=== PATIENT | male | born 1965 | race African-American/Black ===

== ENCOUNTER 2018-01-08 07:48 | Inpatient (IN) | payer MEDICARE, OTHER ==
[~2018-01-08] VITALS: Ht 180.3 cm; Wt 91.2 kg
[~2018-01-08 07:48] MED LIST: AMLO-512 PO; ASPI81 PO; CARV12 PO; FURO40 PO; LISI-662 PO; SPIR25 PO
[2018-01-08 08:34] LABS: GLUCOSE,POINT OF CARE 94 MG/DL (70-110)
[2018-01-08] MEDS ORDERED: METF-444 PO (08:46)
[2018-01-08] MEDS ORDERED: IPRATROPIUM BROMIDE 0.5 MG/2.5 ML NEB SOLUTION NEB ONE (09:15)
[2018-01-08] MEDS ORDERED: ALBUTEROL SULFATE 5 MG/ML 20 ML NEB SOLN [BULK] NEB ONE (09:15)
[2018-01-08] MEDS ORDERED: MethylPREDNISolone SOD SUCC 125 MG/2 ML VIAL IVP ONE (09:15)
[2018-01-08 09:24] LABS: BASOPHILS % (AUTO) 0.6 % (0.0-2.0); EOSINOPHILS % (AUTO) 1.6 % (1.0-6.0); HEMATOCRIT 41.9 % (41-53); HEMOGLOBIN 13.6 g/dL (13.5-17.5); LYMPHOCYTES # (AUTO) 0.6 K/uL (1.0-4.8); LYMPHOCYTES % (AUTO) 6.6 % (22.0-44.0); MEAN CORPUSCULAR HEMOGLOBIN 27.6 pg (26.0-34.0); MEAN CORPUSCULAR HGB CONC 32.5 G/dL (31.0-37.0); MEAN CORPUSCULAR VOLUME 85 fL (80-100); MONOCYTES # (AUTO) 0.6 K/uL (0.1-1.0); MONOCYTES % (AUTO) 6.9 % (2.0-9.0); NEUTROPHILS # (AUTO) 7.2 K/uL (1.8-7.7); NEUTROPHILS % (AUTO) 84.3 % (40.0-70.0); PLATELET COUNT (AUTO) 232 K/uL (150-450); RED BLOOD CELL COUNT(AUTO) 4.93 MIL/uL (4.50-5.90); RED CELL DISTRIBUTION WIDTH 17.8 % (11.5-14.5)
[2018-01-08 09:47] LABS: ANION GAP 8 mmol/L (8-16); CALCIUM, TOTAL 8.4 mg/dL (8.8-10.5); CARBON DIOXIDE 28 mmol/L (22-29); CHLORIDE 105 mmol/L (98-107); CREATININE 0.89 mg/dL (0.60-1.30); GLOMERULAR FILTR. RATE CALC > 60 mL/min (>60); GLUCOSE,RANDOM 102 mg/dL (70-110); POTASSIUM 3.8 mmol/L (3.5-5.1); SODIUM SERUM 141 mmol/L (136-145); UREA NITROGEN, BLOOD 17 mg/dL (7-18)
[2018-01-08 09:53] LABS: APPEARANCE,URINE CLEAR (CLEAR); BILIRUBIN,URINE NEGATIVE (NEGATIVE); GLUCOSE, URINE (UA) NEGATIVE (NEGATIVE); KETONES,URINE NEGATIVE (NEGATIVE); LEUKOCYTE ESTERASE ,URINE NEGATIVE (NEGATIVE); NITRATE,URINE NEGATIVE (NEGATIVE); OCCULT BLOOD,URINE NEGATIVE (NEGATIVE); PH,URINE 6.5 (5.0-8.0); PROTEIN,URINE SEE CONFIRM (NEGATIVE)
[2018-01-08 09:59] LABS: BACTERIA,URINE None Seen /HPF (None Seen); RBC,URINE None Seen /HPF (0-2); SULFOSALICYLIC ACID,URINE 4+ (Negative); WBC,URINE None Seen /HPF (0-5)
[2018-01-08 10:12] LABS: ALANINE AMINOTRANSFERASE 46 U/L (12-78); ALBUMIN 2.4 g/dL (3.4-5.0); ALKALINE PHOSPHATASE 120 U/L (46-116); ASPARTATE AMINOTRANSFERASE 32 U/L (15-37); BILIRUBIN,TOTAL 0.5 mg/dL (0.1-1.0); CREATINE KINASE, TOTAL ONLY 286 U/L (39-308); TOTAL PROTEIN, SERUM 6.9 g/dL (6.4-8.2)
[2018-01-08 10:26] LABS: B-TYPE NATRIURETIC PEPTIDE 2290 pg/mL (0-100)
[2018-01-08] MEDS ORDERED: FUROSEMIDE 40 MG/4 ML VIAL IVP ONE (10:45)
[2018-01-08] MEDS ORDERED: ZOLPIDEM TARTRATE 5 MG TABLET PO PRN (12:30)
[2018-01-08] MEDS ORDERED: GLUCAGON,HUMAN RECOMBINANT 1 MG VIAL IM PRN (12:30)
[2018-01-08] MEDS ORDERED: 0.9% SODIUM CHLORIDE 10 ML SYRINGE IVP PRN ×2 (12:30→12:45)
[2018-01-08] MEDS ORDERED: ONDANSETRON HCL 4 MG/2 ML VIAL IVP PRN ×2 (12:30→12:45)
[2018-01-08] MEDS ORDERED: ACETAMINOPHEN 325 MG TABLET PO PRN (12:45)
[2018-01-08] MEDS ORDERED: DEXTROSE 50%-WATER 25 GM/50 ML SYRINGE IVP PRN (12:45)
[2018-01-08] MEDS ORDERED: ASPIRIN 81 MG CHEWABLE TABLET PO ONE (12:45)
[2018-01-08 12:53] VITALS: BP 158/102
[2018-01-08] MEDS: DOCUSATE SODIUM 100 MG CAPSULE PO SCH ×2 (13:24→21:00)
[2018-01-08] MEDS: ENOXAPARIN SODIUM 40 MG/0.4 ML PF SYRINGE SQ SCH (13:24)
[2018-01-08] MEDS: LISINOPRIL 20 MG TABLET PO SCH (13:24)
[2018-01-08 16:29] VITALS: BP 152/90
[2018-01-08] MEDS: MetFORMIN HCL 500 MG TABLET PO SCH (17:50)
[2018-01-08] MEDS: INSULIN LISPRO 100 UNITS/ML SQ PRN ×2 (17:52→21:16)
[2018-01-08 19:31] VITALS: BP 145/89
[2018-01-08] MEDS: FUROSEMIDE 40 MG/4 ML VIAL IVP SCH (21:12)
[2018-01-08] MEDS: BENZONATATE 100 MG CAPSULE PO SCH (21:13)
[2018-01-08 21:23] LABS: GLUCOMETER DEV NAME(LOC) 5N 1P; GLUCOSE,POINT OF CARE 274 MG/DL (70-110)
[2018-01-08 23:06] LABS: AMPHET/METH SCREEN,URINE NEGATIVE (NEGATIVE); BARBITURATE SCREEN, URINE NEGATIVE (NEGATIVE); BENZODIAZEPINES SCREEN,URINE NEGATIVE (NEGATIVE); CANNABINOID SCREEN,URINE NEGATIVE (NEGATIVE); COCAINE SCREEN,URINE NEGATIVE (NEGATIVE); METHADONE SCREEN, URINE NEGATIVE (NEGATIVE); OPIATE SCREEN,URINE NEGATIVE (NEGATIVE); PHENCYCLIDINE SCREEN,URINE NEGATIVE (NEGATIVE)
[2018-01-08 23:36] VITALS: BP_SYST 139; BP_SYST 142; BP_DIAS 70; BP_DIAS 90
[2018-01-09 04:22] VITALS: BP 129/82
[2018-01-09] MEDS: INSULIN LISPRO 100 UNITS/ML SQ PRN ×3 (06:03→20:18)
[2018-01-09 06:43] LABS: BASOPHILS % (AUTO) 0.2 % (0.0-2.0); EOSINOPHILS % (AUTO) 0.1 % (1.0-6.0); HEMATOCRIT 40.9 % (41-53); HEMOGLOBIN 13.3 g/dL (13.5-17.5); LYMPHOCYTES # (AUTO) 0.4 K/uL (1.0-4.8); LYMPHOCYTES % (AUTO) 3.6 % (22.0-44.0); MEAN CORPUSCULAR HEMOGLOBIN 27.6 pg (26.0-34.0); MEAN CORPUSCULAR HGB CONC 32.6 G/dL (31.0-37.0); MEAN CORPUSCULAR VOLUME 85 fL (80-100); MONOCYTES # (AUTO) 0.8 K/uL (0.1-1.0); NEUTROPHILS # (AUTO) 10.3 K/uL (1.8-7.7); PLATELET COUNT (AUTO) 244 K/uL (150-450); RED BLOOD CELL COUNT(AUTO) 4.84 MIL/uL (4.50-5.90); RED CELL DISTRIBUTION WIDTH 17.1 % (11.5-14.5)
[2018-01-09 06:51] LABS: ANION GAP 10 mmol/L (8-16); CALCIUM, TOTAL 8.6 mg/dL (8.8-10.5); CARBON DIOXIDE 26 mmol/L (22-29); CHLORIDE 101 mmol/L (98-107); GLOMERULAR FILTR. RATE CALC > 60 mL/min (>60); GLUCOSE,RANDOM 146 mg/dL (70-110); SODIUM SERUM 137 mmol/L (136-145); UREA NITROGEN, BLOOD 26 mg/dL (7-18)
[2018-01-09 06:55] LABS: NEUTROPHILS % (AUTO) 89.1 % (40.0-70.0)
[2018-01-09 07:36] VITALS: BP 137/102
[2018-01-09 07:42] LABS: B-TYPE NATRIURETIC PEPTIDE 1870 pg/mL (0-100)
[2018-01-09] MEDS: MetFORMIN HCL 500 MG TABLET PO SCH ×2 (08:30→16:51)
[2018-01-09] MEDS: ENOXAPARIN SODIUM 40 MG/0.4 ML PF SYRINGE SQ SCH (08:30)
[2018-01-09] MEDS: DOCUSATE SODIUM 100 MG CAPSULE PO SCH ×2 (08:31→20:15)
[2018-01-09] MEDS: LISINOPRIL 20 MG TABLET PO SCH (08:31)
[2018-01-09] MEDS: FUROSEMIDE 40 MG/4 ML VIAL IVP SCH ×2 (08:31→20:16)
[2018-01-09] MEDS: BENZONATATE 100 MG CAPSULE PO SCH ×3 (08:31→20:15)
[2018-01-09] MEDS: ASPIRIN 81 MG CHEWABLE TABLET PO SCH (08:31)
[2018-01-09 11:28] VITALS: BP 140/98
[2018-01-09] MEDS ORDERED: SODIUM CHLORIDE 0.9% 100 ML ONE (13:31)
[2018-01-09 13:38] LABS: GLUCOMETER DEV NAME(LOC) 5S 1N; GLUCOSE,POINT OF CARE 116 MG/DL (70-110)
[2018-01-09] MEDS: AZITHROMYCIN 500 MG/NS 250 ML IV SCH (13:39)
[2018-01-09] MEDS: CefTRIAXone SODIUM 1 GM in DEXTROSE 5%-WATER 10 ML IV SCH (13:39)
[2018-01-09 16:28] VITALS: BP 126/86
[2018-01-09 16:44] LABS: GLUCOMETER DEV NAME(LOC) 5S 2R; GLUCOSE,POINT OF CARE 162 MG/DL (70-110)
[2018-01-09 16:44] LABS: GLUCOMETER DEV NAME(LOC) 5S 2R; GLUCOSE,POINT OF CARE 326 MG/DL (70-110)
[2018-01-09 19:29] VITALS: BP 139/98
[2018-01-09 23:34] VITALS: BP 126/86
[2018-01-10 01:11] LABS: GLUCOMETER DEV NAME(LOC) 5S 2R; GLUCOSE,POINT OF CARE 125 MG/DL (70-110)
[2018-01-10 04:08] VITALS: BP 116/62
[2018-01-10] MEDS: INSULIN LISPRO 100 UNITS/ML SQ PRN (05:53)
[2018-01-10 07:41] VITALS: BP 121/87
[2018-01-10] MEDS: FUROSEMIDE 40 MG/4 ML VIAL IVP SCH ×2 (08:19→20:12)
[2018-01-10] MEDS: MetFORMIN HCL 500 MG TABLET PO SCH ×2 (08:19→17:15)
[2018-01-10] MEDS: BENZONATATE 100 MG CAPSULE PO SCH ×3 (08:19→20:12)
[2018-01-10] MEDS: ASPIRIN 81 MG CHEWABLE TABLET PO SCH (08:19)
[2018-01-10] MEDS: AZITHROMYCIN 500 MG/NS 250 ML IV SCH (08:19)
[2018-01-10] MEDS: ENOXAPARIN SODIUM 40 MG/0.4 ML PF SYRINGE SQ SCH (08:20)
[2018-01-10] MEDS: DOCUSATE SODIUM 100 MG CAPSULE PO SCH ×2 (08:20→21:00)
[2018-01-10] MEDS: LISINOPRIL 20 MG TABLET PO SCH (09:31)
[2018-01-10 11:21] VITALS: BP_SYST 121; BP_SYST 138; BP_DIAS 116; BP_DIAS 87
[2018-01-10] MEDS: CefTRIAXone SODIUM 1 GM in DEXTROSE 5%-WATER 10 ML IV SCH (12:27)
[2018-01-10 15:35] VITALS: BP 120/92
[2018-01-10 17:15] LABS: GLUCOMETER DEV NAME(LOC) 5N 2S; GLUCOSE,POINT OF CARE 105 MG/DL (70-110)
[2018-01-10 17:15] LABS: GLUCOMETER DEV NAME(LOC) 5S 1N; GLUCOSE,POINT OF CARE 154 MG/DL (70-110)
[2018-01-10 17:15] LABS: GLUCOMETER DEV NAME(LOC) 5S 1N; GLUCOSE,POINT OF CARE 155 MG/DL (70-110)
[2018-01-10 19:31] VITALS: BP 152/98
[2018-01-11 00:09] VITALS: BP 133/80
[2018-01-11 04:22] VITALS: BP 113/78
[2018-01-11 06:41] LABS: BASOPHILS % (AUTO) 0.8 % (0.0-2.0); EOSINOPHILS % (AUTO) 2.4 % (1.0-6.0); HEMATOCRIT 39.9 % (41-53); HEMOGLOBIN 13.1 g/dL (13.5-17.5); LYMPHOCYTES # (AUTO) 1.1 K/uL (1.0-4.8); LYMPHOCYTES % (AUTO) 15.6 % (22.0-44.0); MEAN CORPUSCULAR HEMOGLOBIN 27.4 pg (26.0-34.0); MEAN CORPUSCULAR HGB CONC 32.8 G/dL (31.0-37.0); MEAN CORPUSCULAR VOLUME 84 fL (80-100); MONOCYTES # (AUTO) 0.7 K/uL (0.1-1.0); MONOCYTES % (AUTO) 9.4 % (2.0-9.0); NEUTROPHILS # (AUTO) 5.1 K/uL (1.8-7.7); NEUTROPHILS % (AUTO) 71.8 % (40.0-70.0); PLATELET COUNT (AUTO) 270 K/uL (150-450); RED BLOOD CELL COUNT(AUTO) 4.77 MIL/uL (4.50-5.90); RED CELL DISTRIBUTION WIDTH 17.4 % (11.5-14.5)
[2018-01-11 07:10] LABS: ANION GAP 3 mmol/L (8-16); CALCIUM, TOTAL 8.2 mg/dL (8.8-10.5); CARBON DIOXIDE 32 mmol/L (22-29); CHLORIDE 103 mmol/L (98-107); CREATININE 0.97 mg/dL (0.60-1.30); GLOMERULAR FILTR. RATE CALC > 60 mL/min (>60); GLUCOSE,RANDOM 123 mg/dL (70-110); POTASSIUM 3.9 mmol/L (3.5-5.1); SODIUM SERUM 138 mmol/L (136-145); UREA NITROGEN, BLOOD 26 mg/dL (7-18)
[2018-01-11 07:41] VITALS: BP 150/111
[2018-01-11] MEDS: BENZONATATE 100 MG CAPSULE PO SCH ×3 (08:35→21:33)
[2018-01-11] MEDS: FUROSEMIDE 40 MG/4 ML VIAL IVP SCH ×2 (08:35→21:32)
[2018-01-11] MEDS: ASPIRIN 81 MG CHEWABLE TABLET PO SCH (08:35)
[2018-01-11] MEDS: MetFORMIN HCL 500 MG TABLET PO SCH ×2 (08:35→17:41)
[2018-01-11] MEDS: DOCUSATE SODIUM 100 MG CAPSULE PO SCH ×2 (08:35→21:00)
[2018-01-11] MEDS: ENOXAPARIN SODIUM 40 MG/0.4 ML PF SYRINGE SQ SCH (08:36)
[2018-01-11] MEDS: AZITHROMYCIN 500 MG/NS 250 ML IV SCH (08:37)
[2018-01-11 09:38] LABS: ERYTHROCYTE SEDIMENTATION RATE 31 MM/HR (0-15)
[2018-01-11] MEDS: LISINOPRIL 20 MG TABLET PO SCH (10:45)
[2018-01-11 11:21] VITALS: BP 127/94
[2018-01-11] MEDS: CefTRIAXone SODIUM 1 GM in DEXTROSE 5%-WATER 10 ML IV SCH (12:27)
[2018-01-11] MEDS: ALBUTEROL SULFATE 2.5 MG/0.5 ML NEB SOLUTION NEB SCH ×3 (15:00→23:24)
[2018-01-11] MEDS: IPRATROPIUM BROMIDE 0.5 MG/2.5 ML NEB SOLUTION NEB SCH ×3 (15:00→23:24)
[2018-01-11 15:24] VITALS: BP 133/97
[2018-01-11 17:23] LABS: GLUCOMETER DEV NAME(LOC) 5N 2S; GLUCOSE,POINT OF CARE 125 MG/DL (70-110)
[2018-01-11 19:58] LABS: GLUCOMETER DEV NAME(LOC) 5S 2R; GLUCOSE,POINT OF CARE 121 MG/DL (70-110)
[2018-01-11 20:09] VITALS: BP 123/83
[2018-01-11] MEDS: CARVEDILOL 6.25 MG TABLET PO SCH (21:33)
[2018-01-12] VITALS (13 sets, daily range): BP systolic 110–149; BP diastolic 51–108
[2018-01-12] MEDS: ALBUTEROL SULFATE 2.5 MG/0.5 ML NEB SOLUTION NEB SCH ×4 (03:00→15:19)
[2018-01-12] MEDS: IPRATROPIUM BROMIDE 0.5 MG/2.5 ML NEB SOLUTION NEB SCH ×4 (03:00→15:19)
[2018-01-12 06:46] LABS: BASOPHILS % (AUTO) 0.8 % (0.0-2.0); EOSINOPHILS % (AUTO) 2.6 % (1.0-6.0); HEMATOCRIT 39.7 % (41-53); LYMPHOCYTES % (AUTO) 16.5 % (22.0-44.0); MEAN CORPUSCULAR HEMOGLOBIN 27.6 pg (26.0-34.0); MEAN CORPUSCULAR HGB CONC 32.6 G/dL (31.0-37.0); MEAN CORPUSCULAR VOLUME 85 fL (80-100); MONOCYTES # (AUTO) 0.6 K/uL (0.1-1.0); MONOCYTES % (AUTO) 10.8 % (2.0-9.0); NEUTROPHILS # (AUTO) 4.1 K/uL (1.8-7.7); NEUTROPHILS % (AUTO) 69.3 % (40.0-70.0); PLATELET COUNT (AUTO) 250 K/uL (150-450); RED BLOOD CELL COUNT(AUTO) 4.69 MIL/uL (4.50-5.90); RED CELL DISTRIBUTION WIDTH 17.2 % (11.5-14.5)
[2018-01-12 06:57] LABS: PROTHROMBIN TIME 10.2 SEC (9.4-11.6)
[2018-01-12 07:18] LABS: ALANINE AMINOTRANSFERASE 52 U/L (12-78); ALBUMIN 2.1 g/dL (3.4-5.0); ALKALINE PHOSPHATASE 115 U/L (46-116); ANION GAP 3 mmol/L (8-16); ASPARTATE AMINOTRANSFERASE 26 U/L (15-37); BILIRUBIN,TOTAL 0.1 mg/dL (0.1-1.0); CALCIUM, TOTAL 7.9 mg/dL (8.8-10.5); CARBON DIOXIDE 32 mmol/L (22-29); CHLORIDE 103 mmol/L (98-107); CREATININE 1.01 mg/dL (0.60-1.30); GLOMERULAR FILTR. RATE CALC > 60 mL/min (>60); GLUCOSE,RANDOM 94 mg/dL (70-110); SODIUM SERUM 138 mmol/L (136-145); TOTAL PROTEIN, SERUM 5.9 g/dL (6.4-8.2); UREA NITROGEN, BLOOD 28 mg/dL (7-18)
[2018-01-12] MEDS: MetFORMIN HCL 500 MG TABLET PO SCH (08:00)
[2018-01-12] MEDS ORDERED: LIDOCAINE/PF 1% 30 ML VIAL ONE (08:08)
[2018-01-12] MEDS ORDERED: IOHEXOL 300 MG/ML 150 ML VIAL ONE (08:08)
[2018-01-12] MEDS ORDERED: SODIUM BICARBONATE 50 MEQ/50 ML VIAL ONE (08:08)
[2018-01-12] MEDS ORDERED: HEPARIN SODIUM 1000 UNITS/NS 1,000 ML ONE (08:09)
[2018-01-12] MEDS ORDERED: MIDAZOLAM HCL 2 MG/2 ML VIAL ONE (08:56)
[2018-01-12] MEDS ORDERED: FentaNYL CITRATE-PF 100 MCG/2 ML VIAL ONE (08:56)
[2018-01-12] MEDS: ENOXAPARIN SODIUM 40 MG/0.4 ML PF SYRINGE SQ SCH (09:00)
[2018-01-12] MEDS: DOCUSATE SODIUM 100 MG CAPSULE PO SCH (09:00)
[2018-01-12] MEDS ORDERED: HEPARIN SODIUM 2,000 UNITS in HEPARIN SODIUM 1000 UNITS/NS 1,000 ML IARTER ONE (09:24)
[2018-01-12] MEDS ORDERED: SODIUM CHLORIDE 0.9% 500 ML IV ONE (09:24)
[2018-01-12] MEDS ORDERED: MIDAZOLAM HCL 2 MG/2 ML VIAL IVP ONE (09:30)
[2018-01-12] MEDS ORDERED: FentaNYL CITRATE-PF 100 MCG/2 ML VIAL IVP ONE (09:30)
[2018-01-12] MEDS ORDERED: LIDOCAINE 1% 30 ML/SOD BICARB 8.4% 4 ML SQ ONE (09:30)
[2018-01-12] MEDS ORDERED: IOHEXOL 300 MG/ML 150 ML VIAL IARTER ONE (09:30)
[2018-01-12] MEDS: BENZONATATE 100 MG CAPSULE PO SCH (10:44)
[2018-01-12] MEDS: FUROSEMIDE 40 MG/4 ML VIAL IVP SCH (10:44)
[2018-01-12] MEDS: ASPIRIN 81 MG CHEWABLE TABLET PO SCH (10:44)
[2018-01-12] MEDS: AZITHROMYCIN 500 MG/NS 250 ML IV SCH (10:45)
[2018-01-12] MEDS: CARVEDILOL 6.25 MG TABLET PO SCH (11:47)
[2018-01-12] MEDS: LISINOPRIL 20 MG TABLET PO SCH (11:47)
[2018-01-12] MEDS: CefTRIAXone SODIUM 1 GM in DEXTROSE 5%-WATER 10 ML IV SCH (11:47)
[2018-01-12] MEDS: INSULIN LISPRO 100 UNITS/ML SQ PRN (11:50)
[2018-01-12] MEDS ORDERED: AMOX1TAB16 PO (16:01)
[2018-01-12] MEDS ORDERED: CARV12 PO (16:01)
[2018-01-12] MEDS ORDERED: BENZ-51 PO (16:02)
[2018-01-12 17:24] LABS: GLUCOMETER DEV NAME(LOC) 5S 1N; GLUCOSE,POINT OF CARE 110 MG/DL (70-110)
[2018-01-12 17:24] LABS: GLUCOMETER DEV NAME(LOC) 5S 1N; GLUCOSE,POINT OF CARE 169 MG/DL (70-110)
[2018-01-12] MEDS ORDERED: CARVEDILOL 12.5 MG TABLET PO SCH (21:00)
[2018-01-13 06:18] LABS: GLUCOMETER DEV NAME(LOC) 5N 1P; GLUCOSE,POINT OF CARE 105 MG/DL (70-110)
[2018-01-13 06:18] LABS: GLUCOMETER DEV NAME(LOC) 5N 1P; GLUCOSE,POINT OF CARE 97 MG/DL (70-110)
== END 2018-01-12 16:30 | disposition home or self-care (01) | DRG 286 ==
LOC: EMS 07:50 → 5N 12:17
PROVIDERS: ADMIT Internal Medicine; ATTEND Internal Medicine
PROC: 4A023N8 Measurement of Cardiac Sampling and Pressure, Bilateral, Percutaneous Approach (ICD-10-PCS; principal; 2018-01-12)
PROC: B2111ZZ Fluoroscopy of Multiple Coronary Arteries using Low Osmolar Contrast (ICD-10-PCS; 2018-01-12)
PROC: B2151ZZ Fluoroscopy of Left Heart using Low Osmolar Contrast (ICD-10-PCS; 2018-01-12)
DX: I11.0 Hypertensive heart disease with heart failure (principal); J18.9 Pneumonia, unspecified organism; I51.1 Rupture of chordae tendineae, not elsewhere classified; E11.9 Type 2 diabetes mellitus without complications; I50.23 Acute on chronic systolic (congestive) heart failure; R06.03 Acute respiratory distress; J44.9 Chronic obstructive pulmonary disease, unspecified; E78.5 Hyperlipidemia, unspecified; F17.210 Nicotine dependence, cigarettes, uncomplicated; I25.118 Atherosclerotic heart disease of native coronary artery with other forms of angina pectoris; I25.5 Ischemic cardiomyopathy; I34.0 Nonrheumatic mitral (valve) insufficiency; Z82.49 Family history of ischemic heart disease and other diseases of the circulatory system; Z82.5 Family history of asthma and other chronic lower respiratory diseases; Z83.3 Family history of diabetes mellitus; Z95.1 Presence of aortocoronary bypass graft; Z95.3 Presence of xenogenic heart valve; Z95.810 Presence of automatic (implantable) cardiac defibrillator; Z79.82 Long term (current) use of aspirin; Z79.899 Other long term (current) drug therapy
CPT/HCPCS: 80307; 83735; 84145; 85651; 87015; 87070; 87206; 93005; 93306; 93460; 94640; 94644; 96374; 96375; 99291; G0378; J0456; J0696; J1644; J1650; J1940; J2250; J2930; J3010; J3490; J7050; J7060; Q9967